=== PATIENT | female | born 1975 ===

== ENCOUNTER 2016-12-05 15:02 | Emergency (ER) | payer SELFPAY ==
[2016-12-05 15:40] VITALS: RESP 18; BMI 23.7
--- NOTE | 2016-12-05 16:49 | RAD ---
PROCEDURE: Radiographs of the Right Shoulder HISTORY: pain COMPARISON: None available. FINDINGS: BONES: No acute displaced fracture. The distal clavicle and underlying ribs appear intact. JOINTS: No acute dislocation. SOFT TISSUES: Soft tissues appear unremarkable. No evidence of radiopaque foreign body. IMPRESSION: No acute displaced fracture or dislocation evident. If symptoms persist or if there is continued clinical concern, x-ray follow-up in 7-10 days should be considered.
--- NOTE | 2016-12-05 16:53 | C.PDOC ---
History Of Present Illness 41 year old patient presents to the ED complaining of right shoulder pain for the past week described as "tight". The pain is worse with movement. She is right hand dominant. 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 Patient denies trauma, fever, shortness of breath, chest pain, numbness, or weakness. Patient has taken Naproxen for the pain with transient relief. Time Seen by Provider: 12/05/16 15:51 Chief Complaint (Nursing): Upper Extremity Problem/Injury History Per: Patient History/Exam Limitations: no limitations Onset/Duration Of Symptoms: Other (1 week) Current Symptoms Are (Timing): Still Present Quality: "Pain" Severity: Mild Pain Scale Rating Of: 3 Exacerbating Factor(s): Movement Recent travel outside of the [place]: No Past Medical History Reviewed: Historical Data, Nursing Documentation, Vital Signs Vital Signs: Last Vital Signs Temp 98.1 F 12/05/16 17:02 Pulse 69 12/05/16 17:02 Resp 18 12/05/16 17:02 BP 117/81 12/05/16 17:02 Pulse Ox 100 12/05/16 17:55 Family History: States: Unknown Family Hx - Social History Hx Alcohol Use: No Hx Substance Use: No - Immunization History Hx Tetanus Toxoid Vaccination: Yes (4 years ago) Hx Influenza Vaccination: Yes Hx Pneumococcal Vaccination: No Review Of Systems Except As Marked, All Systems Reviewed And Found Negative. Constitutional: Negative for: Fever Cardiovascular: Negative for: Chest Pain Respiratory: Negative for: Shortness of Breath Musculoskeletal: Positive for: Shoulder Pain (rihgt) Neurological: Negative for: Weakness, Numbness Physical Exam - Physical Exam Appears: Non-toxic, No Acute Distress Skin: Warm, Dry Head: Atraumatic, Normacephalic Eye(s): bilateral: Normal Inspection, EOMI Nose: Normal Oral Mucosa: Moist Neck: Normal ROM, No Midline Cervical Tenderness, No Paracervical Tenderness, No Step Off Deformity, Supple Chest: Symmetrical, No Tenderness Cardiovascular: Rhythm Regular Respiratory: Normal Breath Sounds, No Accessory Muscle Use Back: Normal Inspection Extremity: Capillary Refill (<2 seconds), No Deformity, No Swelling, Other ( right side trapezius tenderness. anterior shoulder tenderness. pain with ROM past 90 degrees.) Pulses: Right Brachial: Normal, Left Radial: Normal Neurological/Psych: Oriented x3, Normal Speech, Normal Cognition, Normal Motor, Normal Sensation Gait: Steady ED Course And Treatment O2 Sat by Pulse Oximetry: 100 (RA) Pulse Ox Interpretation: Normal Progress Note: Plan: -Flexeril. -Right shoulder x-ray. -Reassess and disposition. On reassessment, patient is resting comfortably, and is in no acute distress. The symptoms have improved. Patient was instructed to follow up with physician/clinic for further evaluation. Return if symptoms are worse. Disposition - Disposition Disposition: HOME/ ROUTINE Disposition Time: 16:50 Condition: STABLE Additional Instructions: Please follow up with your coal screener or clinic in 2-5 days for further evaluation. Give your child medications as prescribed. Return to the emergency department at any time if symptoms persist or worsen. 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 - Scribe Statement The provider has reviewed the documentation as recorded by the Scribe Vicki Teran All medical record entries made by the Scribe were at my direction and personally dictated by me. I have reviewed the chart and agree that the record accurately reflects my personal performance of the history, physical exam, medical decision making, and the department course for this patient. I have also personally directed, reviewed, and agree with the discharge instructions and disposition.
[2016-12-05 17:03] VITALS: BP 117/81; PULSE 69; TEMP 98.1
[2016-12-05 17:49] VITALS: O2SAT 100
== END 2016-12-05 17:03 | disposition home or self-care (01) ==
LOC: C.ER 15:02
DX: M25.511 Pain in right shoulder (principal)